=== PATIENT | female | born 1965 | race Caucasian/White ===

== ENCOUNTER → 2018-06-25 15:20 | Outpatient (CLI) | payer BC, SELFPAY ==
[2018-06-27 11:40] LABS: HPV Reflexed? NOT INDICATED
== END ==
PROVIDERS: Visit Provider Obstetrics & Gynecology
DX: Z12.4 Encounter for screening for malignant neoplasm of cervix (principal)
CPT/HCPCS: 88175; G0145

== ENCOUNTER → 2018-07-17 12:10 | Outpatient (CLI) | payer BC, SELFPAY | PROVIDERS: Family Provider Nurse Practitioner; PCP Nurse Practitioner; Visit Provider Obstetrics & Gynecology | DX: Z12.31 Encounter for screening mammogram for malignant neoplasm of breast (principal) | CPT/HCPCS: 77063; 77067 ==

== ENCOUNTER → 2019-07-16 | Outpatient (CLI) | payer BC, SELFPAY ==
[2018-12-05 15:02] VITALS: BMI 28.5
[2019-07-19 09:17] LABS: HPV Reflexed? NOT INDICATED
== END | disposition home or self-care (01) ==
LOC: LABSPEC 13:25
PROVIDERS: Visit Provider Obstetrics & Gynecology
DX: Z12.4 Encounter for screening for malignant neoplasm of cervix (principal)
CPT/HCPCS: 88175; G0145

== ENCOUNTER → 2019-08-10 | Outpatient (CLI) | payer BC, SELFPAY ==
[2018-12-05 15:02] VITALS: BMI 28.5
--- NOTE | 2019-08-10 13:07 | BI_ITS ---
MAMMOGRAPHY - BILATERAL SCREENING REASON FOR EXAM: Female, 53 years old. Routine annual screening examination. PERTINENT HISTORY: Non-contributory. Remote right stereotactic breast biopsy. TECHNIQUE: Digital bilateral breast temo (3D mammographic acquisition) in the CC and MLO projections. 2-D mediolateral oblique (MLO) and craniocaudad (CC) views of both breasts were obtained. CAD: Full Field Digital Mammography with Computer Added Detection was performed. COMPARISON: Comparison is made with prior examination dated July 17, 2018 and October 01, 2016. FINDINGS: Breast Composition: The breasts are heterogeneously dense, which may obscure small masses. There are no dominant masses or suspicious calcifications. A tissue clip marker is seen in the upper lateral portion of the right breast. No other significant abnormalities are identified. There has been no significant change since the prior study. BI/SCREEN MAMM (CAD) W/TEMO BILAT IMPRESSION: Stable bilateral screening mammogram. Yearly follow-up mammogram recommended. (A) ASSESSMENT CATEGORY: BIRADS Category 2: Benign. A letter regarding these results will be sent to the patient by the facility within 30 days. Approximately 10% of breast cancers are not detected by mammography. A normal mammogram should not delay biopsy of a clinically suspicious abnormality. [id number] Electronically Signed: José Zuniga, at 15:19 EDT , Service support ,
== END | disposition home or self-care (01) ==
PROVIDERS: Family Provider Internal Medicine; PCP Internal Medicine; Referring Provider Obstetrics & Gynecology; Visit Provider Obstetrics & Gynecology
DX: Z12.31 Encounter for screening mammogram for malignant neoplasm of breast (principal)
CPT/HCPCS: 77063; 77067

== ENCOUNTER 2019-08-19 12:24 | Day surgery (SDC) | payer BC, SELFPAY ==
[2018-12-05 15:02] VITALS: BMI 28.5
--- NOTE | 2019-08-13 12:02 | PCM.HPOB.BLA ---
History and Physical Date of Admission: 08/19/19 On 08/13/2019, Kaylen Childs, a 53 year old female 2 0 0 0 2, presented for: -- Pre-Op Kaylen is here for Pre-Op visit for planned Hysteroscopy, D+C, Polypectomy scheduled for 08/19/19 @ [facility]. Denies Sx illness; she is afebrile here. Consent signed. D+C/Hysteroscopy literature given. Coupon for Chlorhexidine body wash given to be picked up @ [facility] this morning; shower instructions reviewed. Advised no use of NSAIDS, Aspirin, or Fish Oil until after surgery. PAT yesterday by call from [facility] As above. Here for preop appt for hysteroscopy, D and C and Symphion polypectomy. Postmenopausal bleeding and sono on 07/21/19 with following findings : UTERUS: 8.4 x 4.8 x 4.1 cm. ENDOMETRIAL ECHO: 1.4 cm and appears to contain a 1.9 x .7 x 1.6 cm polyp. RIGHT OVARY: 1.5 x .9 x 1 cm. Likely endometrial polyp as source of bleeding. Reviewed R,B,A of the proposed surgical procedure. Discussed anticipated preop, operative and postop recovery including return to usual activity as tolerated. States no longer bleeding at this time. All questions re surgery and recovery answered to her satisfaction and consents signed and on chart. EB ALLERGIES: PERCOCET, Itching MEDICATIONS HISTORY: Current medications prescribed by our practice are: 1. estradiol 1 mg tablet, 1 po daily 2. nystatin-triamcinolone 100,000 unit/g-0.1 % topical cream, apply thin layer bid prn to affected skin 3. Provera 2.5 mg tablet, 1 po daily Patient is also takin. Cymbalta 60 mg capsule,delayed release(DR/EC), daily 2. Multi For Her 18 mg iron-600 mcg capsule, daily 3. simvastatin 20 mg tablet, daily 4. Vitamin D3 1,000 unit capsule, daily REVIEW OF SYSTEMS: GENERAL - Denies fever, or chills SKIN - Denies skin changes EYES - wears glasses EARS - Denies difficulty hearing NOSE - Denies nasal congestion or bleeding MOUTH - Denies sore throat or difficulty swallowing NECK - Denies pain or swelling RESPIRATORY - Denies shortness of breath or wheezing CARDIOVASCULAR - Denies palpitations or chest pain GASTROINTESTINAL - Denies nausea, vomiting, diarrhea, constipation GENITOURINARY - Denies dysuria, frequency of urination, incontinence of urine MUSCULOSKELETAL - Denies joint or muscle pain NEUROLOGICAL - Denies localized numbness or weakness PSYCHIATRIC - Anxiety/Depression -- Cymbalta ENDOCRINE - Denies heat or cold intolerance, weight loss or gain HEMATO-IMMUNOLOGIC - Denies excessive bleeding with cuts PAST HISTORY: Breast/Ovarian/Colon Cancers - Maternal Grandmother had Colon Cancer approximately age 70 or older Infections - Chicken pox Illnesses - DEPRESSION and Hypercholesterolemia Accidents - no injuries of consequence History of Abnormal PAPS - Denies Hospitalizations - Childbirth SURGICAL HISTORY: 1. 09/02/1998 Keila Maddox M.D. BREECH 2. 08/23/2009 R breast biopsy Keila Maddox M.D. breast lump MENSTRUAL HISTORY: LMP Known?- DefiniteAmount/Duration - spotting, Regularity - missed periods, Frequency - variable days, LMP - 06/27/19, Age Onset Menarche - 15 PAST PREGNANCIES: Total Pregnancies - 2; Full Term Pregnancies - 2; Premature - 0; Abortions, Induced - 0; Abortions, Spontaneous - 0; Ectopics - 0; Multiple Births - 0; Living Children - 2 FAMILY HISTORY: Father - FH: Hypertension; MaternalGrandparent - FH: Cancer of colon; SOCIAL HISTORY: Alcohol Use - socially Smoking - stopped smoking 09/2018 Diet - no special diet Lifestyle - moderate stress lifestyle and Exercise - regular Seat Belt Use - always Employer - [employer] 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 Illicit Drug Use - denies use of street drugs Sexual Activity - Hours Worked - 2-5 days per week depending on season Spouse-Sig Other Name - Félix Childs Spouse-Sig Other Occupation - Interior Design Coordinator Children Name(s) - WILLY Control - vasectomy PHYSICAL EXAMINATION BP- 138/80 Sitting, Right arm, large cuff Temp- 98.3 Taken Orally Weight- 186.00 lbs Height- 68.50 inch BMI:27.93 CONSTITUTIONAL - NAD, well nourished, and well developed HEENT - Normocephalic, PERRLA, EOMI NECK - no nuchal rigidity EXTREMITIES - No edema or calf tenderness NEUROLOGICAL - Cranial nerves II-XII grossly intact PSYCHIATRIC - A and O to time, place, person, mood and affect PELVIC - Endometrial stripe thickened on sono ASSESSMENT: 1. Postmenopausal Bleeding 2. Abnormal Findings On Diagnostic Imaging Of Other Abdominal Regions, Including Retroperitoneum PLAN BY DIAGNOSIS: 1. Abnormal Findings On Diagnostic Imaging Of Other Abdominal Regions, Including Retroperitoneum and Postmenopausal Bleeding Sono results reviewed. Thickened endometrial stripe consistent with endometrial polyp Recommend: hysteroscopy, D and C and endometrial polypectomy Reviewed anticipated preop, operative and postop recovery course with return to all activity next day after surgery All questions answered to her satisfaction. Plan for hysteroscopy, D and C, and Symphion polypectomy as scheduled. RTO in 2 - 3 wk for postop follow up appt.
[2019-08-13 13:51] LABS: Hematocrit 41.3 % (37-47); Hemoglobin 13.7 g/dL (12.0-15.0); Mean Corp Hgb Conc 33.2 g/dL (32-36); Mean Corpuscular Hgb 29.8 pg (27.0-32.0); Mean Platelet Vol. 11.1 fl (6.2-12.0); Platelet Count 252 K/mm3 (150-450); RBC Distribution Width CV 12.7 % (11.6-14.6); RBC Distribution Width SD 41.9 fl (35.1-43.9); Red Blood Count 4.59 M/mm3 (4.2-5.4); White Blood Count 6.6 K/mm3 (4.4-11.0)
[2019-08-13 14:00] LABS: International Normalized Ratio 1.1
[2019-08-13 14:01] LABS: Partial Thromboplast Time 28.8 Seconds (24.1-36.2)
[2019-08-19 12:49] VITALS: BP 142/71; PULSE 71; RESP 15; TEMP 36.5; O2SAT 100; BMI 27.9
[2019-08-19] MEDS: Lactated Ringers 1,000 ML 150 ML IV (13:00)
--- NOTE | 2019-08-19 13:55 | EMB_PTH ---
PATIENT: BANDAR JASSO LOC: [facility] U#:[id number] AGE/SX: 53/F ROOM: RE08/19/[address]: Dr. Keila Maddox MD : 1965 BED: DIS: 08/19/2019 SPEC #: [id number] RECD: 08/19/19 15:49 STATUS: MARY AYANNA #: [id number] JANICE: 08/19/19 13:[address]: Keila Maddox DEPT: SURGICAL PATHOLOGY RECD BY: Devin Martínez ENTERED: 08/20/19 08:02 SP TYPE: ENDOM BX/C OTHR DR: Dr. Kirstin Romo DO Tissues: Endometrium, NOS Procedures: Surgery Specimen Level IV HEADER OPERATION: Hysteroscopy, D & C Symphion PRE-OP DIAGNOSIS: Postmenopausal bleeding; abnormal findings on imaging TISSUE SUBMITTED: Endometrial curettings and polyp MICROSCOPIC DIAGNOSIS Endometrial polyp and curettings: Polypoid fragments of cystic disordered endemetrium Focal stromal hyperplasia consistent with exogenous hormonal effect. AM:yogesh 08/21/19 COMMENT Case has been reviewed in consultation with Dr. Liu who concurs with the above diagnosis. IDC:JYOTI MICROSCOPIC DESCRIPTION Slides are reviewed. GROSS DESCRIPTION Received in fixative is one container labeled with the patient's name and designated endometrial curettings and polyp. The specimen consists of multiple irregular fragments of herrera mucoid tissue mixed with blood clot that in aggregate measure 5 x 3 x 0.3 cm. The entire specimen is submitted in one cassettes. / SJ:yogesh 08/20/19 TC:5 CPT: 88448
--- NOTE | 2019-08-19 14:19 | DCINST_ITS ---
Discharge Diet: No Restrictions Discharge Activity: May Shower, May Take a Tub Bath Return to work on:: 08/20/19 Weight Bearing Status: Weight bearing as tolerated Call your doctor if you observe: Fever of 101 or Higher, Using more than one pad per hour, Uncontrolled pain Additional Instructions: Take Tylenol 500 mg tabs 1 to 2 by mouth every 6 hours for milder pain. You may take either two Aleve by mouth every 8 hrs OR three Ibuprofen (200mg each) by mouth every 8 hrs in addition to tylenol if needed. Allergies/Adverse Reactions: Allergies hydrocodone Allergy (Verified 08/19/19 12:45) Itching Medications to take at Discharge cholecalciferol (vitamin D3) 2,000 unit tablet 2,000 unit PO DAILY 07/31/18 duloxetine 60 mg capsule,delayed release 60 mg PO DAILY 07/31/18 multivitamin tablet 1 tab PO DAILY 07/31/18 simvastatin 20 mg tablet 40 mg PO QHS 07/31/18 estradiol 0.5 mg tablet 0.5 mg PO DAILY 12/05/18 medroxyprogesterone 5 mg tablet 5 mg PO DAILY 12/05/18 Alum [place]-3 Fatty Acids/Fish Oil [Alum Bridge 3 1,000 mg Softgel] 1 ea PO DAILY 08/12/19 Omeprazole Magnesium [Prilosec Otc] 20 mg PO PRN PRN 08/12/19 Primary Care Physician: Kirstin Romo DO [Primary Care Provider] - Test Results: Test results from this visit will be discussed in further detail at your follow- up appointment, if applicable. Please Follow Up With: Keila Maddox MD - [phone] When: 2 wk for postoperative follow up Proposed Discharge Date: 08/19/19
[2019-08-19 14:29] VITALS: BP 132/65; BP 142/71; PULSE 80; RESP 18; TEMP 37.1; O2SAT 97
[2019-08-19 14:35] VITALS: BP 129/75; BP 142/71; PULSE 72; RESP 16; O2SAT 94
--- NOTE | 2019-08-19 14:36 | OP.PCM_ITS ---
Report of Operation Date of Procedure: 08/19/19 Pre-Operative Diagnosis: Postmenopausal bleeding, thickened endometrial stripe. Probable endometrial polyp Post-Operative Diagnosis: Same Surgery/Procedure Performed:: Hysteroscopy, D and C, Symphion polypectomy Description of Surgical Findings:: Uterus sounded to 8 cm, slightly anteverted An endometrial polyp was noted at hysteroscopy. The polypectomy was performed using the Symphion resectoscope. At completion the endometrial cavity was normal appearing with atrophic appearing endometrium Type of Anesthesia:: Local MAC Anesthesiologist: Meir Colón CRNA Specimen's removed: Uterine curettings, endometrial polyp Drains: Simone broderick prior to case Estimated Blood Loss (mL): 20 Fluids Replaced: LR Description of Procedure: Narrative account After the R,B,Alternatives of the procedure were reviewed with the patient , informed consent was obtained. The patient was taken to the operating room with an IV running and placed in dorsal supine position of the operating table. She was given MAC IV sedation and repositioned to the dorsal lithotomy position and prepped and draped in the usual sterile fashion. A graves speculum was placed into the vagina and the cervix was brought into view. The cervix was normal appearing. The cervix was instilled with 10 cc of 1% lidocaine as a paracervical block using a 20 G spinal needle. A single toothed tenaculum was applied to the anterior lip of the cervix. The cervix was then sequentially dilated to allow admission of the hysteroscope into the endometrial cavity. The hysteroscopy was performed with findings noted as above. There was an endom etrial polyp noted. A polypectomy using the Symphion resectoscope and sharp curettage was performed . The tissue was set aside for later pathology review. The hysteroscope was again inserted and confirmed that the polyp was removed. One final pass was conducted with the sharp curette tip advanced through the cervix to the uterine fundus . Excellent hemostasis was noted. The single toothed tenaculum was removed from the cervix and a RayTec was used to remove any remaining tissue and blood from the upper vagina and cervix. The procedure was terminated. The speculum was removed. The patient was returned to dorsal supine position and awakened from IV sedation and transferred to her recovery room bed in stable condition after tolerating the procedure well. Sponge, lap, needle and instrument counts were correct x two. medications given intraoperatively included 10 cc of 1% lidocaine without epinephrine instilled as a paracervical block. Toradol 30 mg IV times one was also given. For a complete listing of the medications given intraoperatively, see the anesthesia record. - Complications None. - Admit VTE Documentation VTE Present on Admission: No VTE Mechan Device Prophylaxis: SCD's VTE Pharm Prophylaxis ordered?: No
[2019-08-19 14:40] VITALS: BP 127/72; BP 142/71; PULSE 69; RESP 16; O2SAT 94
[2019-08-19 14:46] VITALS: BP 117/68; BP 142/71; PULSE 66; RESP 16; TEMP 36.5; O2SAT 95
[2019-08-19 15:32] VITALS: BP 142/71
== END 2019-08-19 15:39 | disposition home or self-care (01) ==
LOC: SDC 12:26 → AC 12:31
PROVIDERS: Family Provider Internal Medicine; PCP Internal Medicine; Referring Provider Obstetrics & Gynecology; Visit Provider Obstetrics & Gynecology
PROC: 0UB98ZZ Excision of Uterus, Via Natural or Artificial Opening Endoscopic (ICD-10-PCS; CPT 58558; principal; 2019-08-19 13:40)
DX: N84.0 Polyp of corpus uteri (principal); N85.00 Endometrial hyperplasia, unspecified; E78.00 Pure hypercholesterolemia, unspecified; F32.9 Major depressive disorder, single episode, unspecified; K21.9 Gastro-esophageal reflux disease without esophagitis; Z87.891 Personal history of nicotine dependence; Z79.899 Other long term (current) drug therapy
CPT/HCPCS: 58558; 36415; 85027; 85610; 85730; 86850; 86900; 86901; 88305; J7120; J2405

== ENCOUNTER → 2021-08-08 12:51 | Outpatient (CLI) | payer OTHER, SELFPAY ==
--- NOTE | 2021-08-08 12:58 | ECHOD_ITS ---
Reason For Study: Murmur Procedure This was a 2D Doppler, Color Flow transthoracic echocardiogram. Exam performed in department. Left Ventricle Normal LV size. Left ventricular systolic function is normal. The estimated ejection fraction is 65 %. Septal motion consistent with IVCD. Transmitral doppler flow suggestive of impaired relaxation of left ventricle. No regional wall motion abnormalities noted. Right Ventricle Normal RV size. Normal systolic function. Atria Normal left atrium. Normal right atrium. No doppler evidence for ASD. Mitral Valve There is no mitral annular calcification. Normal mitral valve. Mild (1+) mitral valve insufficiency. Tricuspid Valve Normal tricuspid valve. Trivial tricuspid valve insufficiency. Unable to estimate RV systolic pressure due to insufficient tricuspid regurgitant envelope. Aortic Valve Trisinus/trileaflet aortic valve. Normal aortic valve. Pulmonic Valve The pulmonic valve is not well visualized. Great Vessels The aortic root is not well visualized. Pericardium/Pleural No pericardial effusion. MMode/2D Measurements & Calculations LVIDd: 4.9 cm IVSd: 1.1 cm LA dimension: 3.3 cm LVIDs: 3.2 cm LVPWd: 1.3 cm FS: 36.0 % LAV(MOD-bp): 42.4 ml LA A4 area: 14.4 cm2 RA A4 area: 12.5 cm2 LAV(MOD-bp) Indexed: 22.0 ml/m2 LAV(MOD-sp2): 46.1 ml LAV(MOD-sp4): 35.5 ml Time Measurements MV dec time: 0.39 sec Doppler Measurements & Calculations MV E max robert: 55.5 cm/sec Lat Peak E' Robert: 5.0 cm/sec Med Peak E' Robert: 4.5 cm/sec MV A max robert: 89.5 cm/sec E/E' lat: 11.2 E/E' med: 12.5 MV E/A: 0.62 MV V2 max: 106.8 cm/sec MV P1/2t max robert: 83.0 cm/sec Ao V2 max: 172.3 cm/sec MV max P.6 mmHg MV P1/2t: 72.7 msec Ao max P.9 mmHg MV V2 mean: 56.9 cm/sec MV dec slope: 334.7 cm/sec2 MV mean P.5 mmHg MVA(P1/2t): 3.0 cm2 MV V2 VTI: 25.7 cm LV V1 max: 121.0 cm/sec PA V2 max: 132.9 cm/sec LV V1 max P.9 mmHg ECHO/Echo Complete Interpretation Summary Left ventricular systolic function is normal. The estimated ejection fraction is 65 %. Septal motion consistent with IVCD. Mild (1+) mitral valve insufficiency. Trivial tricuspid valve insufficiency. Unable to estimate RV systolic pressure due to insufficient tricuspid regurgita nt envelope. Transmitral doppler flow suggestive of impaired relaxation of left ventricle Ordering Physician: Matias Rizvi Referring Physician: Kirstin Romo M.D. Performed By: Michael Rizvi RCS
== END ==
PROVIDERS: PCP Internal Medicine; Referring Provider Internal Medicine Cardiovascular Disease; Visit Provider Internal Medicine Cardiovascular Disease
DX: I34.0 Nonrheumatic mitral (valve) insufficiency (principal); I44.7 Left bundle-branch block, unspecified; E78.5 Hyperlipidemia, unspecified
CPT/HCPCS: 93306

== ENCOUNTER → 2021-10-24 17:00 | Outpatient (CLI) | payer OTHER, SELFPAY ==
--- NOTE | 2021-10-24 16:54 | BI_ITS ---
MAMMOGRAPHY - BILATERAL SCREENING REASON FOR EXAM: Female, 55 years old. Routine annual screening examination. PERTINENT HISTORY: Non-contributory. Remote right stereotactic breast biopsy. TECHNIQUE: Digital bilateral breast temo (3D mammographic acquisition) in the CC and MLO projections. 2-D mediolateral oblique (MLO) and craniocaudad (CC) views of both breasts were obtained. CAD: Full Field Digital Mammography with Computer Added Detection was performed. COMPARISON: Comparison is made with prior study 08/10/2019 and 07/17/2018. FINDINGS: Breast Composition: The breasts are heterogeneously dense, which may obscure small masses. There are no dominant masses or suspicious calcifications. A tissue clip marker is once again seen in the upper lateral portion of the right breast. No other significant abnormalities are identified. There has been no significant change since the prior study. BI/SCRN MAMM (CAD)W/TEMO BILAT IMPRESSION: Stable bilateral screening mammogram. Yearly follow-up mammogram recommended. (A) ASSESSMENT CATEGORY: BIRADS Category 2: Benign. A letter regarding these results will be sent to the patient by the facility within 30 days. Approximately 10% of breast cancers are not detected by mammography. A normal mammogram should not delay biopsy of a clinically suspicious abnormality. [id number] Electronically Signed: José Zuniga MD at 10:55 EST , Service support ,
== END ==
PROVIDERS: PCP Internal Medicine; Referring Provider Student in an Organized Health Care Education/Training Program; Visit Provider Student in an Organized Health Care Education/Training Program
DX: Z12.31 Encounter for screening mammogram for malignant neoplasm of breast (principal)
CPT/HCPCS: 77063; 77067

== ENCOUNTER 2022-07-18 08:00 | Outpatient (RCR) | payer OTHER, SELFPAY ==
--- NOTE | 2022-06-13 12:53 | HP.PTEVAL_ITS ---
Patient's Visit Information BANDAR JASSO is a 56 year old F referred to Physical Therapy by Dr. Oksana Iraheta MD with a diagnosis of . Date of Evaluation: 06/13/22 Physical Therapist: Boo Cadet PT, Cert MDT, OCS - Visit Plan Frequency: 2x /Week Duration: 4 Weeks Plan: PT INTERVTIONS DLS ,POSTURAL EX'S , ACTIVITY MODIFICATION , AND POSTURAL TRAINING - Subjective This 56 y/o female presents to physical therapy with back pain. Patient has had LBP ~ 2years. Patient seen DR jaylon BERRIOS . No diagnostics . Patient had nerve conduction test 15 years ago. Located pain LS and posterior hips. Aggravating factors sitting, laying, standing and morning. Alleviating factors walking as day goes on. Coughing/sneezing -. Bowel/bladder -. Symptoms affects sleeping. No abnormal night pain. Patient has tried massage. C/O tingling /pare sthesia in legs ex with sitting. Patient has had no trauma. Patient has not exercises. Patient has seen oceanographer geological and recommended neurologist. Patient goals affects ADL's and housework tasks. SOCIAL: . VOCATION: [employer] - Pain Bilateral Back Pain Intensity (Out of 10): 3 Pain Intensity Range: 10 - Objective POSTURE: WFL. GAIT: reciprocal pattern. NEURO: c/o paresthesia/tingling ,right leg reflexes L3-L4,L4-L5,L5-S1 2/3. SYMMETRIES : align. MMT: quads/hams/hip/ankle 4/5. LUMBAR ROM: flexion min loss ,extension mod loss , side glides min. FLEXABILITY: hamstrings WFL - Special Tests L/S Slump test left side: Negative L/S Slump test right side: Negative L/S Left Straight Leg Raise: Negative L/S Right Straight Leg Raise: Negative Lumbar Standing: Flexion - Mechanical Response: No effect Lumbar Standing: Flexion - Symptoms During Testing: No effect Lumbar Standing: Flexion - Symptoms After Testing: No effect Lumbar Standing: Extension - Mechanical Response: No effect Lumbar Standing: Extension - Symptoms During Testing: Increases Lumbar Standing: Extension - Symptoms After Testing: No worse Lumbar Standing: Right Side Glides - Mechanical Response: No effect Lumbar Standing: Right Side [place] - Symptoms During Testing: No effect Lumbar Standing: Right Side [place] - Symptoms After Testing: No effect Lumbar Standing: Left Side [place] - Mechanical Response: No effect Lumbar Standing: Left Side [place] - Symptoms During Testing: No effect Lumbar Standing: Left Side [place] - Symptoms After Testing: No effect Lumbar Lying: Flexion - Mechanical Response: No effect Lumbar Lying: Flexion - Symptoms During Testing: Decreases Lumbar Lying: Flexion - Symptoms After Testing: No effect Lumbar Lying: Extension - Mechanical Response: No effect Lumbar Lying: Extension - Symptoms During Testing: Increases Lumbar Lying: Extension - Symptoms After Testing: No effect - Balance/Special Test Scores Oswestry Low Back Score: 20 - Goals Goal 1:: Patient to be I with HEP Goal Time Frame: 4-6 Weeks Goal 2:: Patient demonstrate 50% improvement with improved function and decrease pain Goal Time Frame: 4-6 Weeks Goal 3:: Patient to improve lumbar ROM for function of recovery to lift laundry basket Goal Time Frame: 4-6 Weeks Goal 4:: Patient to improve back oswestry score by 5 points or > to improve function Goal Time Frame: 4-6 Weeks - Rehabilitation Potential Physical Therapy Diagnosis: Patient has lumbar pain with possible lateral stenosis symptoms worse with motion testing ,positioning ,worse with extension and better with flexion , along core weakness with poor muscular endurance with difficulty to activate TA thus benefit from skilled PT Rehabilitation Potential: Good - Anticipated Interventions Patient/Client Instruction: Educate patient on: Condition, Plan of Care For the Purpose of:: To decrease pain, To increase ROM, To improve muscle performance and motor function, To increase tolerance to activity/condition/pos ition, To improve ability of physical actions for home/community/work/leisure, To improve health of tissue, To decrease soft tissue restriction, To increase flexibility/ROM, To prevent re-injury, To improve tolerance to ADL's Therapeutic Exercise to Include: Strength training, Body mechanics, Postural training, Flexibilty training, Dynamic Lumbar Stabilization For the Purpose of:: To decrease pain, To increase ROM, To improve muscle performance and motor function, To increase tolerance to activity/condition/position, To improve ability of physical actions for home/community/work/leisure, To improve health of tissue, To decrease soft tissue restriction, To increase flexibility/ROM, To prevent re-injury Thank you for the opportunity to evaluate your patient. For Medicare and Medicare HMO plans, please review the plan of care and approve it. It will need to be FAXED BACK to us at [phone] for Medicare purposes. For Medicare only, by signing this I certify the plan of care. Please let me know if there are questions or concerns regarding this plan of care. Physician Signature: Date:
--- NOTE | 2022-06-13 14:43 | HP.PTEVAL_ITS ---
Patient's Visit Information BANDAR JASSO is a 56 year old F referred to Physical Therapy by Dr. Oksana Iraheta MD with a diagnosis of DORSALGIA,BACKACHE. Date of Evaluation: 06/13/22 Physical Therapist: Boo Cadet PT, Cert MDT, OCS - Visit Plan Frequency: 2x /Week Duration: 4 Weeks Plan: PT INTERVTIONS DLS ,POSTURAL EX'S , ACTIVITY MODIFICATION , AND POSTURAL TRAINING - Subjective This 56 y/o female presents to physical therapy with back pain. Patient has had LBP ~ 2years. Patient seen DR iyer PT . No diagnostics . Patient had nerve conduction test 15 years ago. Located pain LS and posterior hips. Aggravating factors sitting, laying, standing and morning. Alleviating factors walking as day goes on. Coughing/sneezing -. Bowel/bladder -. Symptoms affects sleeping. No abnormal night pain. Patient has tried massage. C/O tingling /paresthesia in legs ex with sitting. Patient has had no trauma. Patient has not exercises. Patient has seen hydraulics engineer and recommended neurologist. Patient goals affects ADL's and housework tasks. SOCIAL: . VOCATION: [employer] - Pain Bilateral Back Pain Intensity (Out of 10): 3 Pain Intensity Range: 10 - Objective POSTURE: WFL. GAIT: reciprocal pattern. NEURO: c/o paresthesia/tingling ,right leg reflexes L3-L4,L4-L5,L5-S1 2/3. SYMMETRIES : align. MMT: quads/hams/h ip/ankle 4/5. LUMBAR ROM: flexion min loss ,extension mod loss , side glides min. FLEXABILITY: hamstrings WFL - Special Tests L/S Slump test left side: Negative L/S Slump test right side: Negative L/S Left Straight Leg Raise: Negative L/S Right Straight Leg Raise: Negative Lumbar Standing: Flexion - Mechanical Response: No effect Lumbar Standing: Flexion - Symptoms During Testing: No effect Lumbar Standing: Flexion - Symptoms After Testing: No effect Lumbar Standing: Extension - Mechanical Response: No effect Lumbar Standing: Extension - Symptoms During Testing: Increases Lumbar Standing: Extension - Symptoms After Testing: No worse Lumbar Standing: Right Side Glides - Mechanical Response: No effect Lumbar Standing: Right Side [place] - Symptoms During Testing: No effect Lumbar Standing: Right Side [place] - Symptoms After Testing: No effect Lumbar Standing: Left Side [place] - Mechanical Response: No effect Lumbar Standing: Left Side [place] - Symptoms During Testing: No effect Lumbar Standing: Left Side [place] - Symptoms After Testing: No effect Lumbar Lying: Flexion - Mechanical Response: No effect Lumbar Lying: Flexion - Symptoms During Testing: Decreases Lumbar Lying: Flexion - Symptoms After Testing: No effect Lumbar Lying: Extension - Mechanical Response: No effect Lumbar Lying: Extension - Symptoms During Testing: Increases Lumbar Lying: Extension - Symptoms After Testing: No effect - Balance/Special Test Scores Oswestry Low Back Score: 20 - Goals Goal 1:: Patient to be I with HEP Goal Time Frame: 4-6 Weeks Goal 2:: Patient demonstrate 50% improvement with improved function and decrease pain Goal Time Frame: 4-6 Weeks Goal 3:: Patient to improve lumbar ROM for function of recovery to lift laundry basket Goal Time Frame: 4-6 Weeks Goal 4:: Patient to improve back oswestry score by 5 points or > to improve function Goal Time Frame: 4-6 Weeks - Rehabilitation Potential Physical Therapy Diagnosis: Patient has lumbar pain with possible lateral stenosis symptoms worse with motion testing ,positioning ,worse with extension and better with flexion , along core weakness with poor muscular endurance with difficulty to activate TA thus benefit from skilled PT Rehabilitation Potential: Good - Anticipated Interventions Patient/Client Instruction: Educate patient on: Condition, Plan of Care For the Purpose of:: To decrease pain, To increase ROM, To improve muscle performance and motor function, To increase tolerance to acti vity/condition/position, To improve ability of physical actions for home/community/work/leisure, To improve health of tissue, To decrease soft tissue restriction, To increase flexibility/ROM, To prevent re-injury, To improve tolerance to ADL's Therapeutic Exercise to Include: Strength training, Body mechanics, Postural training, Flexibilty training, Dynamic Lumbar Stabilization For the Purpose of:: To decrease pain, To increase ROM, To improve muscle performance and motor function, To increase tolerance to activity/condition/position, To improve ability of physical actions for home/community/work/leisure, To improve health of tissue, To decrease soft tissue restriction, To increase flexibility/ROM, To prevent re-injury Thank you for the opportunity to evaluate your patient. For Medicare and Medicare HMO plans, please review the plan of care and approve it. It will need to be FAXED BACK to us at [phone] for Medicare purposes. For Medicare only, by signing this I certify the plan of care. Please let me know if there are questions or concerns regarding this plan of care. Physician Signature: Date:
--- NOTE | 2022-11-06 10:20 | HP.PT.NRP ---
BANDAR JASSO was seen in my office for initial evaluation on 06/13/22. The following Plan of Care was established for this patient: Initial Frequency: 2x /Week Initial Duration: 4 Weeks Patient/Client Instruction: Educate patient on: Condition, Plan of Care For the Purpose of:: To decrease pain, To increase ROM, To improve muscle performance and motor function, To increase tolerance to activity/condition/position, To improve ability of physical actions for home/community/work/leisure, To improve health of tissue, To decrease soft tissue restriction, To increase flexibility/ROM, To prevent re-injury, To improve tolerance to ADL's Therapeutic Exercise to Include: Strength training, Body mechanics, Postural training, Flexibilty training, Dynamic Lumbar Stabilization For the Purpose of:: To decrease pain, To increase ROM, To improve muscle performance and motor function, To increase tolerance to activity/condition/position, To improve ability of physical actions for home/community/work/leisure, To improve health of tissue, To decrease soft tissue restriction, To increase flexibility/ROM, To prevent re-injury This patient was last seen in our office . Pertinent comments regarding their Physical therapy will appear below: Patient seen for PT for back pain MRI showed right protrusion thus is d/c At this point I will be discontinuing this patient from physical therapy. I would be happy to see this patient again in the future if found appropriate by the physician. Thank you! Boo Cadet, PT, Cert MDT, OCS Balance/Gait/Functional tests - Balance/Special Test Scores Oswestry Low Back Score: 20
== END 2022-07-18 19:00 | disposition home or self-care (01) ==
LOC: PT 08:00
PROVIDERS: PCP Family Medicine; Referring Provider Family Medicine; Visit Provider Family Medicine
DX: M54.9 Dorsalgia, unspecified (principal)
CPT/HCPCS: 97032; 97110; 97162

== ENCOUNTER → 2022-11-05 | Outpatient (CLI) | payer OTHER, SELFPAY ==
--- NOTE | 2022-11-05 10:45 | MRI_ITS ---
INDICATION: STENOSIS EXAMINATION: MRI - MR Spine Lumbar W/O Contrast TECHNIQUE: Multiplanar and multisequence MR images of the lumbar spine. IV Contrast Dosage and Agent: None. COMPARISON: None. FINDINGS: VERTEBRAE: Vertebral body heights are preserved. Normal vertebral bodies and posterior elements. VERTEBRAL ALIGNMENT: No spondylolisthesis. There is preservation of the normal lumbar lordosis. CORD: Normal position and signal intensity of the conus medullaris. L1/L2: Normal disc height and morphology. Normal spinal canal, lateral recesses and neuroforamina. L2/L3: Normal disc height and morphology. Normal spinal canal, lateral recesses and neuroforamina. L3/L4: Normal disc height and morphology. Normal spinal canal, lateral recesses and neuroforamina. L4/L5: Normal disc height and morphology. Normal spinal canal, lateral recesses and neuroforamina. L5/S1: Normal disc height and morphology. Normal spinal canal, lateral recesses and neuroforamina. SOFT TISSUES: Unremarkable. IMPRESSION: Unremarkable MRI of the lumbar spine. INDICATION: STENOSIS EXAMINATION: MRI - MR Spine Lumbar W/O Contrast TECHNIQUE: Multiplanar and multisequence MR images of the lumbar spine. IV Contrast Dosage and Agent: None. COMPARISON: None. FINDINGS: VERTEBRAE: Vertebral body heights are preserved. No evidence for acute fracture or subluxation. Small hemangioma within the L3 vertebral body. VERTEBRAL ALIGNMENT: No spondylolisthesis. There is preservation of the normal lumbar lordosis. CORD: Normal position and signal intensity of the conus medullaris. L1/L2: Normal disc height and morphology. Normal spinal canal, lateral recesses and neuroforamina. L2/L3: Normal disc height and morphology. Normal spinal canal, lateral recesses and neuroforamina. L3/L4: Normal disc height and small right foraminal disc protrusion.. Normal spinal canal, lateral recesses. Minor right neural foraminal encroachment.. L4/L5: Normal disc height and minor annular bulge. Minor facet arthropathy. Normal spinal canal, lateral recesses and neuroforamina. L5/S1: Normal disc height and minor annular bulge. Mild facet arthropathy.. Normal spinal canal, lateral recesses and neuroforamina. SOFT TISSUES: Unremarkable. MRI/Spine Lumbar (Routine) IMPRESSION: No evidence for acute fracture or subluxation. Minor right neural foraminal stenosis at L3-4 secondary to small right foraminal disc protrusion. Minor annular bulge and facet arthropathy at L4-5 and L5-S1 without spinal stenosis Electronically Signed: Aly Baires MD at 16:26 EST ,
== END | disposition home or self-care (01) ==
PROVIDERS: PCP Family Medicine; Referring Provider Orthopaedic Surgery; Visit Provider Orthopaedic Surgery
DX: M48.061 Spinal stenosis, lumbar region without neurogenic claudication (principal); M47.26 Other spondylosis with radiculopathy, lumbar region; M51.36 Other intervertebral disc degeneration, lumbar region
CPT/HCPCS: 72148

== ENCOUNTER → 2022-11-16 | Outpatient (CLI) | payer OTHER, SELFPAY ==
[2022-11-16 12:23] LABS: Absolute Lymphocyte Count 2.12 X10^3/uL (0.83-4.51); Absolute Neutrophil Count 3.4 X10^3/uL (2.0-7.7); Basophil# 0.04 X10^3/uL; Basophil% 0.6 % (0-1); Eosinophil# 0.11 X10^3/uL; Eosinophils% 1.7 % (0-5); Hematocrit 41.2 % (37-47); Hemoglobin 13.4 g/dL (12.0-15.0); Lymphocyte # 2.12 X10^3/ul (0.83-4.51); Lymphocyte % 33.4 % (19-41); Mean Corp Hgb Conc 32.5 g/dL (32-36); Mean Corpuscular Hgb 28.9 pg (27.0-32.0); Mean Platelet Vol. 11.6 fl (6.2-12.0); Monocyte# 0.68 X10^3/uL; Monocyte% 10.7 % (0-10); NRBC Flagged by Analyzer 0 % (0-5); Neutrophil # 3.37 X10^3/uL (2.7-7.7); Neutrophil % 53.3 % (47-70); Platelet Count 268 K/mm3 (150-450); RBC Distribution Width SD 42.2 fl (35.1-43.9); Red Blood Count 4.63 M/mm3 (4.2-5.4); White Blood Count 6.3 K/mm3 (4.4-11.0)
[2022-11-16 12:47] LABS: ALB/GLOB Ratio 1.1 RATIO (0.9-2.4); AST(SGOT) 17 U/L (15-37); Alanine Aminotransfer ALT/SGPT 32 U/L (13-56); Albumin, Serum 3.9 g/dL (3.2-5.0); Alkaline Phosphatase 62 U/L (45-117); Anion Gap 2 (5-15); BUN 12 mg/dL (7-18); BUN/Creat Ratio 15.2 RATIO (10-20); Calcium,Total 9.1 mg/dL (8.5-10.1); Chloride 107 mmol/L (98-107); Cholesterol 185 mg/dL (200); Creatinine, Serum 0.79 mg/dL (0.55-1.02); EST Glomerular Filtration Rate 80 mL/min (>60); Est Glom Filt Rate - Afr Amer 97 mL/min (>60); Globulin 3.5 g/dL (2.2-4.2); Glucose 99 mg/dL (74-106); High Density Lipoprotein 50 mg/dL; Protein, Total 7.4 g/dL (6.4-8.2); Sodium Level 139 mmol/L (136-145); Triglycerides 262 mg/dL; Very Low Density Lipoprotein 52 mg/dL (5-40)
== END | disposition home or self-care (01) ==
PROVIDERS: PCP Family Medicine; Visit Provider Family Medicine
DX: E78.5 Hyperlipidemia, unspecified (principal); R03.0 Elevated blood-pressure reading, without diagnosis of hypertension
CPT/HCPCS: 36415; 80053; 80061; 85025

== ENCOUNTER → 2022-11-26 | Outpatient (CLI) | payer OTHER, SELFPAY ==
[2022-11-29 21:56] LABS: HPV APTIMA, High Risk Negative (Negative)
== END | disposition home or self-care (01) ==
LOC: LABSPEC 09:36
PROVIDERS: PCP Family Medicine; Visit Provider Student in an Organized Health Care Education/Training Program
DX: Z12.4 Encounter for screening for malignant neoplasm of cervix (principal)
CPT/HCPCS: 87624; 88175; G0145

== ENCOUNTER → 2022-12-11 | Outpatient (CLI) | payer OTHER, SELFPAY ==
--- NOTE | 2022-12-11 11:57 | BI_ITS ---
MAMMOGRAPHY - BILATERAL SCREENING REASON FOR EXAM: Female, 57 years old. Routine annual screening examination. PERTINENT HISTORY: Non-contributory. Remote right stereotactic breast biopsy. TECHNIQUE: Digital bilateral breast temo (3D mammographic acquisition) in the CC and MLO projections. 2-D mediolateral oblique (MLO) and craniocaudad (CC) views of both breasts were obtained. CAD: Full Field Digital Mammography with Computer Added Detection was performed. COMPARISON: Comparison is made with prior study dated 10/24/2021 and 08/10/2019. FINDINGS: Breast Composition: The breasts are heterogeneously dense, which may obscure small masses. There are no dominant masses or suspicious calcifications. A tissue clip marker is once again seen in the anterior lateral aspect of the right breast. No other significant abnormalities are identified. There has been no significant change since the prior study. BI/SCRN MAMM (CAD)W/TEMO BILAT IMPRESSION: Stable bilateral screening mammogram. Yearly follow-up mammogram recommended. (A) ASSESSMENT CATEGORY: BIRADS Category 2: Benign. A letter regarding these results will be sent to the patient by the facility within 30 days. Approximately 10% of breast cancers are not detected by mammography. A normal mammogram should not delay biopsy of a clinically suspicious abnormality. [id number] Electronically Signed: José Zuniga MD at 13:49 EST ,
== END | disposition home or self-care (01) ==
PROVIDERS: PCP Family Medicine; Visit Provider Student in an Organized Health Care Education/Training Program
DX: Z12.31 Encounter for screening mammogram for malignant neoplasm of breast (principal)
CPT/HCPCS: 77063; 77067

== ENCOUNTER → 2023-05-27 | Outpatient (CLI) | payer OTHER, SELFPAY ==
[2023-05-27 12:24] LABS: Absolute Neutrophil Count 2.9 X10^3/uL (2.0-7.7); Basophil# 0.02 X10^3/uL; Basophil% 0.3 % (0-1); Eosinophil# 0.09 X10^3/uL; Eosinophils% 1.5 % (0-5); Hematocrit 38.2 % (37-47); Hemoglobin 12.6 g/dL (12.0-15.0); Lymphocyte % 38.4 % (19-41); Mean Corpuscular Hgb 29.6 pg (27.0-32.0); Mean Corpuscular Volume 89.7 fL (81-99); Monocyte# 0.62 X10^3/uL; Monocyte% 10.4 % (0-10); NRBC Flagged by Analyzer 0 % (0-5); Neutrophil # 2.94 X10^3/uL (2.7-7.7); Neutrophil % 49.1 % (47-70); Platelet Count 250 K/mm3 (150-450); RBC Distribution Width CV 13.2 % (11.6-14.6); RBC Distribution Width SD 43.4 fl (35.1-43.9); Red Blood Count 4.26 M/mm3 (4.2-5.4)
[2023-05-27 12:48] LABS: ALB/GLOB Ratio 1.2 RATIO (0.9-2.4); AST(SGOT) 18 U/L (15-37); Alanine Aminotransfer ALT/SGPT 37 U/L (13-56); Albumin, Serum 3.7 g/dL (3.2-5.0); Alkaline Phosphatase 71 U/L (45-117); Anion Gap 5 (5-15); BUN 13 mg/dL (7-18); BUN/Creat Ratio 17.2 RATIO (10-20); Calcium,Total 8.9 mg/dL (8.5-10.1); Chloride 110 mmol/L (98-107); Cholesterol 164 mg/dL (200); Creatinine, Serum 0.76 mg/dL (0.55-1.02); EST Glomerular Filtration Rate 84 mL/min (>60); Est Glom Filt Rate - Afr Amer 102 mL/min (>60); Globulin 3.2 g/dL (2.2-4.2); Glucose 101 mg/dL (74-106); High Density Lipoprotein 46 mg/dL; Potassium 3.8 mmol/L (3.5-5.1); Protein, Total 6.9 g/dL (6.4-8.2); Sodium Level 139 mmol/L (136-145); Triglycerides 238 mg/dL; Very Low Density Lipoprotein 48 mg/dL (5-40)
== END | disposition home or self-care (01) ==
LOC: BFHLAB 09:25
PROVIDERS: PCP Family Medicine; Referring Provider Family Medicine; Visit Provider Family Medicine
DX: E78.5 Hyperlipidemia, unspecified (principal); R03.0 Elevated blood-pressure reading, without diagnosis of hypertension
CPT/HCPCS: 36415; 80053; 80061; 85025

== ENCOUNTER → 2023-06-11 | Outpatient (CLI) | payer OTHER, SELFPAY ==
[2023-06-11 18:23] LABS: Erythrocyte Sedimentation Rate 1 mm/hr (0-30)
[2023-06-11 19:15] LABS: CRP < 2.90 mg/L (0.0-3.0); Rheumatoid Factor < 10.0 IU/mL (<15)
[2023-06-13 13:08] LABS: CCP IgG Antibodies 4 units (0-19)
[2023-06-13 15:08] LABS: ANTINUCLEAR ANTIBODIES DIRECT Negative (Negative)
== END | disposition home or self-care (01) ==
LOC: BFHLAB 16:00
PROVIDERS: PCP Family Medicine; Referring Provider Family Medicine; Visit Provider Family Medicine
DX: M19.90 Unspecified osteoarthritis, unspecified site (principal)
CPT/HCPCS: 36415; 85652; 86038; 86140; 86200; 86431

== ENCOUNTER → 2024-04-17 | Outpatient (CLI) | payer OTHER, SELFPAY ==
--- NOTE | 2024-04-17 10:09 | BI_ITS ---
MAMMOGRAPHY - BILATERAL SCREENING REASON FOR EXAM: Female, 58 years old. Routine annual screening examination. PERTINENT HISTORY: Non-contributory. Prior right stereotactic breast biopsy. TECHNIQUE: Digital bilateral breast temo (3D mammographic acquisition) in the CC and MLO projections. 2-D mediolateral oblique (MLO) and craniocaudad (CC) views of both breasts were obtained. CAD: Full Field Digital Mammography with Computer Added Detection was performed. COMPARISON: Comparison is made with prior study dated June 10, 2023 and October 24, 2021. FINDINGS: Breast Composition: The breasts are heterogeneously dense, which may obscure small masses. There are no dominant masses or suspicious calcifications. Stable bilateral fat containing axillary lymph nodes. A tissue clip marker is once again seen in the anterior upper lateral aspect of the right breast. No other significant abnormalities are identified. There has been no significant change since the prior study. BI/SCRN MAMM (CAD)W/TEMO BILAT IMPRESSION: Stable bilateral screening mammogram. Yearly follow-up mammogram recommended. (A) ASSESSMENT CATEGORY: BIRADS Category 2: Benign. A letter regarding these results will be sent to the patient by the facility within 30 days. Approximately 10% of breast cancers are not detected by mammography. A normal mammogram should not delay biopsy of a clinically suspicious abnormality. [id number] Electronically Signed: José Zuniga MD at 11:12 EDT ,
== END | disposition home or self-care (01) ==
LOC: OPBI 10:08
PROVIDERS: PCP Family Medicine; Referring Provider Family Medicine; Visit Provider Family Medicine
DX: Z12.31 Encounter for screening mammogram for malignant neoplasm of breast (principal)
CPT/HCPCS: 77063; 77067

== ENCOUNTER → 2024-06-01 | Outpatient (CLI) | payer OTHER, SELFPAY ==
[2024-06-01 12:09] LABS: Absolute Neutrophil Count 2.4 X10^3/uL (2.0-7.7); Basophil# 0.03 X10^3/uL; Basophil% 0.5 % (0-1); Eosinophil# 0.17 X10^3/uL; Eosinophils% 3.1 % (0-5); Hematocrit 40.1 % (37-47); Mean Corp Hgb Conc 32.4 g/dL (32-36); Mean Corpuscular Hgb 29.3 pg (27.0-32.0); Mean Corpuscular Volume 90.3 fL (81-99); Mean Platelet Vol. 10.9 fl (6.2-12.0); Monocyte# 0.58 X10^3/uL; Monocyte% 10.6 % (0-10); NRBC Flagged by Analyzer 0 % (0-5); Neutrophil # 2.39 X10^3/uL (2.7-7.7); Neutrophil % 43.6 % (47-70); Platelet Count 270 K/mm3 (150-450); RBC Distribution Width CV 12.6 % (11.6-14.6); RBC Distribution Width SD 41.6 fl (35.1-43.9); Red Blood Count 4.44 M/mm3 (4.2-5.4); White Blood Count 5.5 K/mm3 (4.4-11.0)
[2024-06-01 13:08] LABS: ALB/GLOB Ratio 1.1 RATIO (0.9-2.4); AST(SGOT) 23 U/L (15-37); Alanine Aminotransfer ALT/SGPT 37 U/L (13-56); Alkaline Phosphatase 90 U/L (45-117); Anion Gap 9 (5-15); BUN 11 mg/dL (7-18); BUN/Creat Ratio 15.6 RATIO (10-20); Calcium,Total 9.4 mg/dL (8.5-10.1); Chloride 106 mmol/L (98-107); Cholesterol 162 mg/dL (200); Creatinine, Serum 0.71 mg/dL (0.55-1.02); EST Glomerular Filtration Rate 91 mL/min (>60); Est Glom Filt Rate - Afr Amer 110 mL/min (>60); Globulin 3.5 g/dL (2.2-4.2); Glucose 94 mg/dL (74-106); High Density Lipoprotein 55 mg/dL; Potassium 4.2 mmol/L (3.5-5.1); Protein, Total 7.5 g/dL (6.4-8.2); Sodium Level 141 mmol/L (136-145); Thyroid Stim Hormone (TSH) 1.26 uIU/mL (0.358-3.74); Triglycerides 129 mg/dL; Very Low Density Lipoprotein 26 mg/dL (5-40)
== END | disposition home or self-care (01) ==
LOC: BFHLAB 10:16
PROVIDERS: PCP Family Medicine; Referring Provider Family Medicine; Visit Provider Family Medicine
DX: E78.5 Hyperlipidemia, unspecified (principal); F41.9 Anxiety disorder, unspecified; F32.A Depression, unspecified
CPT/HCPCS: 36415; 80053; 80061; 84443; 85025

== ENCOUNTER → 2024-06-23 | Outpatient (CLI) | payer OTHER, SELFPAY ==
--- NOTE | 2024-06-23 12:34 | CT_ITS ---
STUDY: LOW DOSE CT LUNG CANCER SCREENING REASON FOR EXAM: Female, 58 years old. Lung cancer screening -- and gt;20pk yr hx;former smoker;asymptomatic RADIATION DOSAGE (If Supplied By Facility): CTDIvol = ( 3.02 ) mGy, DLP = ( 104.58 ) mGycm TECHNIQUE: No contrast was administered. Low dose technique was utilized (average mAS-38 and kVp 120). 1.25 mm axial source images with a slice interval of 1.25-mm were reconstructed in lung windows. 2.5 mm axial source images with a slice interval of 2.5-mm were reconstructed in lung windows. 5.0 mm axial source images with a slice interval of 5.0-mm were reconstructed in soft tissue windows. COMPARISON: None. NODULES: No suspicious nodules are seen. Emphysema: No significant emphysematous changes are present. Endobronchial lesion: None Aorta: Mild degree of atherosclerotic plaque formation of the aortic arch. CORONARY ARTERIES: Coronary artery calcification is not seen. Heart: Minimal degree of anterior pericardial thickening. Pulmonary artery: Unremarkable Mediastinal nodes: Unremarkable Other chest and abdominal findings: CT/Low Dose CT Lung Screening IMPRESSION: Lung-RADS category 2 - Continue annual screening with LDCT in 12 months. IMPORTANT NOTES FOR USE: ACR Lung-RADS Version 1.1 Assessment Categories Release Date: 2018 Category: Coded 0-4 bases on nodule(s) with highest degree of suspicion. Negative screen is defined as categories 1 and 2; a positive screen is defined as categories 3 and 4. Category 3 and 4A nodules that are unchanged on interval CT should be coded as category 2, and individuals returned to screening in 12 months. Category 4X: Category 3 or 4 nodules with additional imaging findings that increase the suspicion of lung cancer, such as spiculation, GGN that doubles in size in 1 year, enlarged lymph notes, etc. Category Modifiers: S (significant finding unrelated to lung cancer) Electronically Signed: José Zuniga MD at 13:21 EDT ,
== END | disposition home or self-care (01) ==
LOC: CT 12:34
PROVIDERS: PCP Family Medicine; Referring Provider Nurse Practitioner Family; Visit Provider Nurse Practitioner Family
DX: Z12.2 Encounter for screening for malignant neoplasm of respiratory organs (principal); Z87.891 Personal history of nicotine dependence
CPT/HCPCS: 71271

== ENCOUNTER → 2024-09-22 | Outpatient (CLI) | payer OTHER, SELFPAY ==
[2024-09-22 16:10] LABS: Vitamin D,25 Hydroxy 31.7 ng/mL
== END | disposition home or self-care (01) ==
LOC: BWCLAB 09:33
PROVIDERS: PCP Family Medicine; Referring Provider Nurse Practitioner Women's Health; Visit Provider Nurse Practitioner Women's Health
DX: Z13.21 Encounter for screening for nutritional disorder (principal); Z80.41 Family history of malignant neoplasm of ovary
CPT/HCPCS: 36415; 82306

== ENCOUNTER → 2025-04-21 | Outpatient (CLI) | payer OTHER, SELFPAY ==
--- NOTE | 2025-04-21 10:47 | BI_ITS ---
EXAM: SCRN MAMM (CAD)W/TEMO BILAT 04/21/2025 CLINICAL HISTORY: F, Age 59 y/o , SCREENING FOR BREAST CANCER TECHNIQUE: Bilateral screening digital breast tomosynthesis with 2D and 3D images. Computer aided detection. COMPARISON: Prior exam(s) dated 04/17/2024, 12/11/2022, 10/24/2021. FINDINGS: TISSUE DENSITY: The breast tissue is heterogenously dense, which may obscure small masses. The mammogram demonstrates that the patient has dense breasts. Supplemental screening with whole breast ultrasound or MRI may be considered for further evaluation. Bilateral Breast Mammographic Findings: No significant masses, calcifications or other abnormalities are identified. BI/SCRN MAMM (CAD)W/TEMO BILAT IMPRESSION: Right Breast: BIRADS 1 NEGATIVE. Left Breast: BIRADS 1 NEGATIVE. OVERALL FINAL ASSESSMENT: BIRADS 1 NEGATIVE. RECOMMENDATION: Routine annual follow-up in 1 Year A letter with findings and recommendations will be mailed to the patient. Reading Location: [id number]
== END | disposition home or self-care (01) ==
LOC: OPBI 10:46
PROVIDERS: PCP Family Medicine; Referring Provider Nurse Practitioner Women's Health; Visit Provider Nurse Practitioner Women's Health
DX: Z12.31 Encounter for screening mammogram for malignant neoplasm of breast (principal)
CPT/HCPCS: 77063; 77067

== ENCOUNTER → 2025-06-07 | Outpatient (CLI) | payer OTHER, SELFPAY ==
[2025-06-07 09:58] LABS: Hematocrit 39.5 % (37-47); Hemoglobin 13.0 g/dL (12.0-15.0); Immature Granulocytes Count 0.020 X10^3/uL (0.0-0.0); Mean Corp Hgb Conc 32.9 g/dL (32-36); Mean Corpuscular Volume 90.0 fL (81-99); Mean Platelet Vol. 11.2 fl (6.2-12.0); NRBC Flagged by Analyzer 0 % (0-5); Platelet Count 223 K/mm3 (150-450); RBC Distribution Width CV 12.7 % (11.6-14.6); RBC Distribution Width SD 41.8 fl (35.1-43.9); Red Blood Count 4.39 M/mm3 (4.2-5.4); White Blood Count 5.6 K/mm3 (4.4-11.0)
[2025-06-07 11:05] LABS: AST(SGOT) 26 U/L (<=31); Alanine Aminotransfer ALT/SGPT 37 U/L (<=34); Albumin, Serum 4.6 g/dL (3.5-5.0); Alkaline Phosphatase 104 U/L (35-104); Anion Gap 11 (5-15); BUN 18 mg/dL (4-19); BUN/Creat Ratio 30.5 RATIO (10-20); Calcium,Total 9.7 mg/dL (7.6-11.0); Carbon Dioxide 24.9 mmol/L (21.0-32.0); Chloride 107 mmol/L (98-108); Cholesterol 165 mg/dL (<=200); Globulin 2.5 g/dL (2.2-4.2); Glucose 99 mg/dL (70-99); Low Density Lipoprotein Calc. 87 mg/dL; Potassium 4.0 mmol/L (3.3-5.1); Triglycerides 71 mg/dL; Very Low Density Lipoprotein 14 mg/dL (5-40); cholesterol:hdl ratio screen 2.59
== END | disposition home or self-care (01) ==
LOC: LAB 09:22
PROVIDERS: PCP Family Medicine; Referring Provider Family Medicine; Visit Provider Family Medicine
DX: E78.5 Hyperlipidemia, unspecified (principal); F41.9 Anxiety disorder, unspecified; F32.A Depression, unspecified
CPT/HCPCS: 36415; 80053; 80061; 84443; 85025

== ENCOUNTER → 2025-07-15 | Outpatient (CLI) | payer OTHER, SELFPAY ==
[2025-07-15 13:18] LABS: CPK Total, Creatine Kinase 78 U/L (24-195); Vitamin B12 392 pg/mL (180-914); Vitamin D,25 Hydroxy 38.8 ng/mL (30-100)
[2025-07-15 13:20] LABS: CRP < 3.00 mg/L (0.0-3.0); Magnesium 2.0 mg/dL (1.5-2.2)
[2025-07-15 13:33] LABS: FOLATES,SERUM (FOLIC ACID) 17.60 ng/mL (4.60-34.80)
[2025-07-21 17:08] LABS: ANA- Smooth Homogeneous 1:320 (.)
== END | disposition home or self-care (01) ==
LOC: LABSPEC 10:33 → BFHLAB 14:04
PROVIDERS: PCP Family Medicine; Visit Provider Family Medicine
DX: M79.10 Myalgia, unspecified site (principal); M25.50 Pain in unspecified joint; Z83.3 Family history of diabetes mellitus
CPT/HCPCS: 36415; 82306; 82550; 82607; 82746; 83036; 83735; 86038; 86140; 86200; 86431

== ENCOUNTER → 2025-08-10 | Outpatient (CLI) | payer OTHER, SELFPAY ==
--- NOTE | 2025-08-10 14:00 | CT_ITS ---
PROCEDURE: LOW DOSE CT LUNG SCREENING 08/10/2025 REASON FOR EXAM: LUNG CANCER SCREENING Former smoker. Patient has smoked 1 pack per day for 34 years. TECHNIQUE: Procedure Code: [id number] Modality: CT Procedure: LOW DOSE CT LUNG SCREENING Coronal and Sagittal reconstruction series were provided. One or more dose reduction techniques were used (e.g., Automated exposure control, adjustment of the mA and/or kV according to patient size, use of iterative reconstruction technique). REFERENCE LINK: [employer] Lung-RADS RADIATION DOSE SUMMARY: CTDlvol: 2.01 mGy DLP: 70.72 mGycm COMPARISON: Prior study dated June 23, 2024. FINDINGS: PULMONARY NODULES: (Only nodules >3mm are reported) Nodules described below are on series 1 unless otherwise specified. Pulmonary Nodules: No suspicious pulmonary nodules are seen. Hardware:None Lymph Nodes:No significant lymph nodes are seen. Heart and Vasculature:The heart is nonenlarged. No significant coronary artery calcification is seen. Minimal anterior pericardial thickening. Coronary Artery Calcifications: Absent Lungs and Airways: The lungs are well-aerated. Pleura:No pleural effusion Upper Abdomen:Unremarkable. Bones:Degenerative changes of the thoracic spine. CT/Low Dose CT Lung Screening IMPRESSION: No suspicious nodules are seen. Coronary artery calcification (CAC) is is absent Lung-RADS Category: 2 BENIGN (BASED ON IMAGING FEATURES OR INDOLENT BEHAVIOR). RECOMMEND 12-MONTH SCREENING LDCT. Other Significant Findings: Reading Location: [place] [id number]
== END | disposition home or self-care (01) ==
LOC: CT 13:49
PROVIDERS: PCP Family Medicine; Referring Provider Nurse Practitioner Family; Visit Provider Nurse Practitioner Family
DX: Z12.2 Encounter for screening for malignant neoplasm of respiratory organs (principal); Z87.891 Personal history of nicotine dependence
CPT/HCPCS: 71271